=== PATIENT | female | born 1960 | race Caucasian/White ===

== ENCOUNTER → 2023-10-11 | Day surgery (SDC) | payer OTHER ==
[~2023-10-11] VITALS: Ht 154.9 cm; Wt 78.5 kg
[~2023-10-11] MED LIST: ACETAMINOPHEN 1000MG/100ML 100 ML IV SCH; BUPIVACAINE HCL/PF 0.5% (5MG/ML) 10ML ONE; CEFAZOLIN SODIUM 1000MG/VIAL ONE; CYAN250010 PO; DEXAMETHASONE 4MG/ML 1ML VIAL ONE; EPHEDRINE SULFATE 50MG/ML VIAL ONE; ESMOLOL HCL 10MG/ML 10ML VIAL IV ONE; FENTANYL CITRATE/PF 50MCG/ML 2ML VIAL IV PRN; FENTANYL CITRATE/PF 50MCG/ML 2ML VIAL ONE; GLYCOPYRROLATE 0.2 MG/ML 2ML VIAL ONE; LATA2.5D14 EACHEYE; LIDOCAINE HCL/PF 1% 10 MG/ML 5ML VIAL ONE; MIDAZOLAM HCL 2 MG/2 ML VIAL ONE; ONDANSETRON HCL 4MG/2ML INJ IV PRN; PROPOFOL 200MG/20ML VIAL IV ONE; ROCURONIUM BROMIDE 10MG/ML VIAL 5ML IV ONE; SKIN ADHESIVE 0.7 GM EA TOP ONE
[2023-10-11] MEDS: LACTATED RINGERS 1,000 ML IV SCH (06:57)
[2023-10-11] MEDS: HYDROMORPHONE HCL/PF 2MG/ML CPJ IV PRN (09:45)
[2023-10-11 11:39] VITALS: BP 122/80; PULSE 75; RESP 17
[2023-10-11] MEDS: ACETAMINOPHEN WITH CODEINE 300/30MG TABLET PO NR (11:39)
== END | disposition home or self-care (01) ==
LOC: OR 05:51
PROVIDERS: ATTEND Surgery
DX: K80.10 Calculus of gallbladder with chronic cholecystitis without obstruction (principal); Z79.899 Other long term (current) drug therapy; Z98.890 Other specified postprocedural states
CPT/HCPCS: 47562; 88304; J3010; J3490 ×6; J0690; J1100; J2250; J2405; J2704; J1170; J0131